=== PATIENT | female | born 1940 | race Caucasian/White ===

== ENCOUNTER 2017-07-02 15:26 | Inpatient (IN) | payer MEDICARE, BC ==
[2017-07-02 17:07] LABS: Hematocrit 40 % (35-47); Hemoglobin 13.5 g/dl (12.0-16.0); Mean Corpuscular HGB Conc 34 g/dl (31-36); Mean Corpuscular Hemoglobin 33 pg (27-31); Mean Corpuscular Volume 96 fL (80-97); Mean Platelet Volume 8 um3 (7.4-10.4); Red Blood Count 4.13 10^6/ul (4.0-5.4); Red Cell Distribution Width 13 % (10.5-15); White Blood Count 6.6 10^3/ul (3.5-10.8)
[2017-07-02] MEDS ORDERED: Digoxin IV* 0.5 MG/2 ML AMP (0.25 MG/ML) IV SLOW PU ONE ×2 (17:08→21:26)
[2017-07-02 17:24] LABS: Albumin 3.9 g/dL (3.2-5.2); BUN/Creatinine Ratio 17.1 (8-20); Calcium 9.1 mg/dL (8.6-10.3); EGFR African American 87.2 (>60); EGFR Non-African American 67.8 (>60); Globulin 2.6 g/dL (2-4); Potassium 3.7 mmol/L (3.5-5.0); Total Bilirubin 0.4 mg/dL (0.2-1.0); Total Protein 6.5 g/dL (6.4-8.9)
[2017-07-02 17:25] LABS: Troponin I 0.01 ng/mL (<0.04)
[2017-07-02] MEDS ORDERED: Meclizine TAB* 12.5 MG PO PRN (17:41)
[2017-07-02] MEDS ORDERED: Potassium Chlor TAB* 20 MEQ TAB.ER PO ONE (17:44)
[2017-07-02 17:58] LABS: TSH (Thyroid Stimulating Horm) 3.73 mcIU/mL (0.34-5.60)
[2017-07-02] MEDS ORDERED: Diltiazem DRIP* 100 MG/100 ML ADDV.BAG IVPB SCH (18:00)
--- NOTE | 2017-07-02 19:38 | HP ---
CC: Lindsay Contreras NP; Dr. Valenzuela; Dr. Wallis HISTORY AND PHYSICAL: DATE OF ADMISSION: 07/02/17 TIME OF EVALUATION: 5:15 p.m. PRIMARY CARE PROVIDER: Lindsay Contreras NP LAWN CARE SPECIALIST: Dr. Valenzuela. CONSULTING LAWN CARE SPECIALIST: Dr. Wallis. CHIEF COMPLAINT: "My heart is beating fast." HISTORY OF PRESENT ILLNESS: Mrs. Brown is a 77-year-old lady with a past medical history of GERD, arthritis, migraines who was sent to the emergency room due to a fast heart rate. The patient states she was in her usual state of health until 6 weeks ago when she had an episode of bronchitis. She was treated with azithromycin and initially she had improvement of her symptoms, but she noticed progressive dyspnea with exertion, palpitations and she felt that she was still fighting the infection off. She noticed progressive limitation of her exercise capacity and a week ago went to her primary care provider who did an EKG and found that the patient was in atrial fibrillation. She was started on aspirin and metoprolol but states that she felt even more tired and fatigued. She had an appointment with Dr. Valenzuela today and she was found to be in atrial fibrillation with rapid ventricular rate and referred to the emergency room for further evaluation. She denies chest pain, chest pressure. She does feel her heart being fast, but she is not aware if it is irregular or not. So, it is unclear when the atrial fibrillation started. PAST MEDICAL HISTORY: 1. Migraines. 2. Arthritis. 3. GERD. MEDICATION LIST: 1. Butalbital/aspirin/caffeine 1 capsule p.o. q.i.d. as needed for migraines. 2. Calcium plus vitamin D 1 tablet p.o. b.i.d. 3. Celecoxib 200 mg p.o. daily. 4. Meclizine 25 mg p.o. t.i.d. p.r.n. dizziness. 6. Metoprolol succinate 25 mg p.o. daily. 7. Multivitamin 1 tablet p.o. daily. 8. Omeprazole 20 mg p.o. b.i.d. ALLERGIES: With CEFACLOR, the patient had hives; with CODEINE, ERYTHROMYCIN, GABAPENTIN, MEPERIDINE, OXYCODONE, TRAMADOL, the patient had vomiting; and with PNEUMOCOCCAL VACCINE and GENERAL ANESTHESIA, she described a reaction similar to rheumatoid arthritis that required treatment with methotrexate. FAMILY HISTORY: Father of pulmonary embolism at age 67. Mother in her 90s of congestive heart failure. Brother of congestive heart failure and another one from bladder cancer. SOCIAL HISTORY: The patient denies tobacco use. She states she drinks 1 glass of wine at night and drinks 2 cups of coffee a day. Surrogate decision maker is her son, Chapito Brown, phone number is [phone]. REVIEW OF SYSTEMS: A 14-point review of systems was performed, and all the pertinent negatives and positive findings are in the HPI. PHYSICAL EXAMINATION GENERAL: The patient is a pleasant, elderly lady, lying in ER stretcher, in no acute distress. VITAL SIGNS: Temperature 97.7, heart rate is 118, respiratory rate 20, oxygen saturation 97% on room air, blood pressure 138/96. HEENT: Pupils are equal. Moist mucous membranes. NECK: No JVD. CHEST: Breath sounds are present bilaterally with no added sounds. CVS: Normal S1, S2. Irregularly irregular. ABDOMEN: Soft. Bowel sounds are present. EXTREMITIES: There is mild bilateral lower extremity edema. NEURO: She is alert, oriented x3. She is able to move all 4 extremities. LABORATORY AND IMAGING DATA: The patient had a CBC that showed WBC of 6.6, hemoglobin of 13.5, hematocrit of 40, and platelets of 248 with 68% neutrophils. Chemistry showed a sodium of 138, potassium 3.7, chloride of 107, bicarb of 26, BUN of 14, creatinine of 0.82, glucose of 95. Magnesium of 2. LFTs are normal. Troponin 0.01. TSH 3.7. EKG showed atrial fibrillation with rapid ventricular rate at 128 beats per minute. This is new when compared to her prior EKG in our system done in 2009, but the patient states she had a physical done in March and an EKG was done at that time and she was told the EKG was normal. ASSESSMENT AND PLAN: Mrs. Brown is a 77-year-old lady with a past medical history of migraines, arthritis, GERD, who was referred to the emergency room with complaints of fatigue, exertional dyspnea, found to have atrial fibrillation with rapid ventricular rate. 1. Atrial fibrillation, rapid ventricular rate. It is unclear when the patient went into atrial fibrillation. She will be admitted as observation to telemetry floor. We are going to start Cardizem drip for rate control. The patient has a CHADS2-VASc score of 3 (female, age) and she will be started on anticoagulation. We discussed multiple options including heparin drip with warfarin or a new oral anticoagulant agent. After reviewing risks and benefits , she elected to take Eliquis and this will be started tonight in preparation for SAMANTHA cardioversion in the morning. A cardiology consultation was already requested with Dr. Wallis. The patient states that in the past when she had general anesthesia, she developed rheumatoid arthritis like reaction, but she does well with conscious sedation. She received it for an endoscopy in December and had no reaction. 2. Gastroesophageal reflux disease: We will continue omeprazole. 3. DVT prophylaxis: The patient had a score of 3 on the DVT Prophylaxis Risk Assessment Guide and she was started on Eliquis. 4. Code status is full. TIME SPENT: Approximately 55 minutes were spent with the patient and family Interview, medical records review, physical examination to complete this admission; more than half of this time was spent [id number] with the patient and coordination of care. [id number]/[facility] #: [id number] ARYA
[2017-07-02] MEDS: Apixaban* 5 MG TAB PO SCH (21:06)
[2017-07-02] MEDS: Omeprazole CAP* 20 MG PO SCH (21:06)
[2017-07-02] MEDS: Metoprolol Succinate XL TAB* 25 MG PO SCH (22:29)
[2017-07-02] MEDS: Diltiazem TAB* 30 MG PO SCH (22:54)
[2017-07-03] MEDS: Diltiazem TAB* 30 MG PO SCH ×2 (05:49→13:00)
[2017-07-03 06:32] LABS: Hematocrit 40 % (35-47); Hemoglobin 13.8 g/dl (12.0-16.0); Mean Corpuscular HGB Conc 35 g/dl (31-36); Mean Corpuscular Hemoglobin 33 pg (27-31); Mean Corpuscular Volume 96 fL (80-97); Mean Platelet Volume 8 um3 (7.4-10.4); Red Blood Count 4.17 10^6/ul (4.0-5.4); Red Cell Distribution Width 13 % (10.5-15); White Blood Count 6.3 10^3/ul (3.5-10.8)
[2017-07-03 06:48] LABS: BUN/Creatinine Ratio 13.4 (8-20); Calcium 9.2 mg/dL (8.6-10.3); EGFR African American 87.2 (>60); EGFR Non-African American 67.8 (>60); Potassium 4.3 mmol/L (3.5-5.0)
--- NOTE | 2017-07-03 08:33 | RAD ---
Indication: Atrial fibrillation. Comparison: June 26, 2017 CT. Technique: Upright AP 0720 hours Report: Mild positional rightward rotation. Cardiomegaly. Mild prominence of interstitial markings. Mildly prominent and ill-defined central pulmonary vasculature. Small LEFT and probable trace RIGHT dependent pleural effusions similar in magnitude to the June 26, 2017 CT. Negative for pneumothorax. IMPRESSION: Mild pulmonary vascular congestion and interstitial edema with associated small LEFT and minimal RIGHT dependent pleural effusions. No significant interval change.
[2017-07-03] MEDS: Metoprolol Succinate XL TAB* 25 MG PO SCH (08:47)
[2017-07-03] MEDS: Omeprazole CAP* 20 MG PO SCH ×2 (08:47→21:46)
[2017-07-03] MEDS: Apixaban* 5 MG TAB PO SCH ×2 (08:47→21:46)
[2017-07-03] MEDS: Multivitamins/Minerals TAB PO SCH (08:47)
[2017-07-03] MEDS ORDERED: Naloxone* 0.4 MG/ML 1 ML VIAL ONE (10:29)
[2017-07-03] MEDS ORDERED: Flumazenil* 0.1 MG/ML 5 ML MDV ONE (10:29)
[2017-07-03] MEDS ORDERED: fentaNYL* 50 MCG/ML 2 ML VIAL (100 MCG VIAL) ONE (10:29)
[2017-07-03] MEDS ORDERED: Lidocaine 2% VISCOUS* 15 ML UDC ONE (10:30)
[2017-07-03] MEDS ORDERED: Midazolam* 1 MG/ML 10 ML VIAL (10 MG) ONE (10:30)
[2017-07-03] MEDS ORDERED: Metoprolol Tartrate IV* 1 MG/ML 5 ML VIAL ONE (11:07)
--- NOTE | 2017-07-03 14:17 | TEE ---
Patient: THALIA ESTEVEZ [facility] Rec#: [id number] : 1940 Date: 07/03/2017 Age: 77y Height: 167.6 cm / 66.0 in Weight: 73.5 kg / 162.0 lbs Sex: F BSA: 1.8 Room#: 451 Admit Date#: 07/02/2017 Type: Inpatient Referring: Joe Wallis MD Performing: Joe Wallis MD Reading: Joe Wallis MD Pupil Personnel Worker: Sissy Chau RN RD Nurse: Milly Esparza RN Transesophageal Echocardiogram Indication: Atrial fibrillation BP: 140/84 HR: 104 Rhythm: A-Fib Findings History: Migraines, arthritis, GERD, recent A. fib and NAJERA Technical Comments: The study quality is good. Completed at 1205. Left Ventricle: The left ventricular chamber size is normal. There is global hypokinesis of the left ventricle with minor regional variation. There is mild to moderately decreased left ventricular systolic function. The estimated ejection fraction is 40-45%. Left Atrium: The left atrium is moderately dilated. No thrombus is visualized within the left atrium. There is no thrombus visualized in the left atrial appendage. Right Ventricle: The right ventricle is not well visualized. Right Atrium: The right atrium is not well visualized. The bubble study is negative. Aortic Valve: The aortic valve is trileaflet. The aortic valve leaflets are mildly thickened. There is a trace of aortic regurgitation. There is no evidence of aortic stenosis. Mitral Valve: The mitral valve leaflets are mildly thickened. There is mild to moderate mitral regurgitation. There is no evidence of mitral stenosis. Tricuspid Valve: The tricuspid valve leaflets are normal. There is mild tricuspid regurgitation. There is no tricuspid stenosis. Pulmonic Valve: The pulmonic valve appears normal. There is no evidence of pulmonic regurgitation. There is no pulmonic stenosis. Pericardium: There is no significant pericardial effusion. Aorta: There is no dilatation of the ascending aorta. There is no dilation of the aortic root. There is mild to moderate atherosclerotic plaque seen in the proximal descending aorta measuring up to 0.6 cm. Pulmonary Artery: The main pulmonary artery appears normal. Venous: The bicaval view was obtained and appears normal. The pulmonary veins appear normal. 3 of 4 pulmonary veins are visualized. SAMANTHA Procedures: All standard views were attempted within the limitations of patient tolerance and safety. The 4-chamber view was attempted but was unable to be obtained. History and physical as well as labs were reviewed. The patient was in a fasting state. Risks and benefits of the procedure, including alternatives, were discussed and written informed consent was obtained. The patient and/or their health care internet sales representative expressed understanding of the procedure, risks and benefits. Baseline and continuous monitoring of blood pressure, heart rate, pulse oximetry and heart rhythm was performed throughout the procedure. The appropriate time-out procedure was performed as per [facility] protocol. The patient was placed in the left lateral decubitus position. The patient's posterior pharynx was anesthetized with 20ml of 2% viscous lidocaine. The patient received IV Midazolam with a total dose of 6 mg. The patient received IV Fentanyl with a total dose of 25 mcg. An oral bite block was inserted for protection of oral dentition. The multiplane transesophageal echocardiogram probe was inserted through the posterior oropharynx and advanced into the esophagus without difficulty. Multiple 2D images were obtained of the heart and its related structures. Color flow Doppler was used for evaluation. Spectral Doppler was also used. The atrial septum was interrogated with color flow Doppler. At the conclusion of the procedure the probe was removed with continuous suction without complications. The patient tolerated the procedure with no apparent complications. Contrast: Normal saline was used as contrast for the bubble study. There was a small jet of possible flow across a PFO but this was not confirmed on the contrast study which was negative despite cough and valsalva. Image 56. Conclusions There is global hypokinesis of the left ventricle with minor regional variation. There is mild to moderately decreased left ventricular systolic function. The estimated ejection fraction is 40-45%. The left atrium is moderately dilated. No thrombus is visualized within the left atrium. The aortic valve leaflets are mildly thickened. There is a trace of aortic regurgitation. There is mild tricuspid regurgitation. There is no dilation of the aortic root. There is mild to moderate atherosclerotic plaque seen in the proximal descending aorta measuring up to 0.6 cm. No prior study. Measurements Name Value Normal Range Aortic Annulus 2.3 cm (1.4 - 2.6) Ao root diameter (2D) 3.1 cm (2.1 - 3.5) Ascending Ao 2.9 cm (2.1 - 3.4)
--- NOTE | 2017-07-03 14:42 | PN ---
Subjective Date of Service: 07/03/17 Interval History: HOSPITALIST PROGRESS NOTE Patient seen and examined at bedside. Still sedated after SAMANTHA, offers no complaints. Family History: Unchanged from Admission Social History: Unchanged from Admission Past Medical History: Unchanged from Admission Objective Active Medications: Acetaminophen (Tylenol Tab*) 650 mg PO Q6H PRN PRN Reason: pain/fever Apixaban (Eliquis*) 5 mg PO BID [facility] Last Admin: 07/03/17 08:47 Dose: 5 mg Digoxin (Lanoxin Tab*) 0.125 mg PO 1700 [facility] Meclizine HCl (Antivert Tab*) 25 mg PO TID PRN PRN Reason: DIZZINESS Multivitamins/Minerals (Theragran/Minerals Tab*) 1 tab PO DAILY [facility] Last Admin: 07/03/17 08:47 Dose: 1 tab Omeprazole (Prilosec Cap*) 20 mg PO BID [facility] Last Admin: 07/03/17 08:47 Dose: 20 mg Sotalol HCl (Betapace Tab*) 80 mg PO BID [facility] Vital Signs - 8 hr 07/03/17 07/03/17 07/03/17 07:42 12:37 12:39 Temperature 98.1 F 98.5 F Pulse Rate 103 87 87 Respiratory 20 16 Rate Blood Pressure 151/76 160/94 160/94 (mmHg) O2 Sat by Pulse 91 92 Oximetry Oxygen Devices in Use Now: Nasal Cannula Appearance: Elderly lady lying in bed in NAD. Eyes: No Scleral Icterus Ears/Nose/Mouth/Throat: Mucous Membranes Moist Neck: Trachea Midline Respiratory: Symmetrical Chest Expansion and Respiratory Effort, Clear to Auscultation Cardiovascular: - - Normal S1 and S2, irregularly irregular Abdominal: NL Sounds; No Tenderness; No Distention Result Diagrams: 07/03/17 06:17 07/03/17 06:17 Assess/Plan/Problems-Billing Assessment: Mrs. Brown is a 77yo F with PMH of migraines, arthritis, GERD, who presented to ED with c/o fast HB, found to be in Afib RVR. - Patient Problems (1) Atrial fibrillation with rapid ventricular response Comment: - Unclear when it started, but she has felt poor since she had "bronchitis" 6 weeks ago. - Failed 2 attempted CVs today - plan for digoxin and Betapace and if no chemical conversion, would try CV again next week. - Continue Eliquis. (2) GERD (gastroesophageal reflux disease) Comment: - Continue Omeprazole. (3) DVT prophylaxis Comment: - Eliquis. (4) Full code status Status and Disposition: Change to inpatient.
[2017-07-03] MEDS: Sotalol TAB* 80 MG PO SCH ×2 (15:28→21:46)
[2017-07-03] MEDS: Digoxin TAB* 0.125 MG PO SCH (17:07)
[2017-07-03] MEDS: Atorvastatin* 20 MG TAB PO SCH (17:41)
--- NOTE | 2017-07-03 22:37 | CARD ---
PROCEDURE REPORT: DATE OF PROCEDURE: 07/03/17 REASON FOR PROCEDURE: AFib. INDICATIONS: This is a 77-year-old who has had several weeks of feeling tired and was found to be in atrial fibrillation with rapid ventricular response. She was admitted last night and started on Car dizem in addition to the beta-mary she was on. Also she got a couple doses of digoxin. She was s tarted on oral anticoagulation. A SAMANTHA guided cardioversion was requested. DESCRIPTION OF PROCEDURE: The patient was brought to the procedure room in the fasting state. [facility] was obtained. She was premedicated with 6 mg of Versed and 50 mcg of fentanyl. SAMANTHA was performed revealed no evidence of intracardiac thrombus and additional 2 mg of Versed was given in a synchronized biphasic shock of 120 joules was applied with conversion to sinus rhythm for only a coup le of beats. She was given 5 mg of Lopressor IV and an additional shock of 200 joules biphasic was administered wi thout conversion to sinus rhythm. IMPRESSION: Attempted cardioversion x2 without maintenance of sinus rhythm. PLAN: The patient will be started on antiarrhythmic therapy with sotalol. She will be monitored for arrhythmia. We will consider repeat attempt of cardioversion after 2 to 3 days. [id number]/[facility] #: [id number]
[2017-07-04 07:51] LABS: HDL Cholesterol 63.1 mg/dL
[2017-07-04 08:06] LABS: Digoxin 0.8 ng/ml (0.8-2.0)
[2017-07-04] MEDS: Omeprazole CAP* 20 MG PO SCH ×2 (08:23→20:36)
[2017-07-04] MEDS: Multivitamins/Minerals TAB PO SCH (08:23)
[2017-07-04] MEDS: Apixaban* 5 MG TAB PO SCH ×2 (08:23→20:36)
[2017-07-04] MEDS: Sotalol TAB* 80 MG PO SCH ×2 (08:23→20:37)
[2017-07-04] MEDS: Acetaminophen TAB* 325 MG PO PRN ×2 (08:29→20:36)
[2017-07-04] MEDS ORDERED: Furosemide IV* 10 MG/ML 2 ML VIAL (20 MG) IV ONE (08:54)
[2017-07-04] MEDS ORDERED: Potassium Chlor TAB* 10 MEQ TAB.ER PO ONE (08:55)
--- NOTE | 2017-07-04 09:06 | PN ---
Subjective Date of Service: 07/04/17 Interval History: feels good at rest mild lightheaded when stands dyspnea on just walking to bathroom AM EKG: Rate controlled afib, normal QTc tele: rate controlled afib, no ventricular arrhythmias Medications Active Medications: Acetaminophen (Tylenol Tab*) 650 mg PO Q6H PRN PRN Reason: pain/fever Last Admin: 07/04/17 08:29 Dose: 650 mg Apixaban (Eliquis*) 5 mg PO BID [facility] Last Admin: 07/04/17 08:23 Dose: 5 mg Atorvastatin Calcium (Lipitor*) 20 mg PO 1700 [facility] Last Admin: 07/03/17 17:41 Dose: 20 mg Digoxin (Lanoxin Tab*) 0.125 mg PO 1700 [facility] Last Admin: 07/03/17 17:07 Dose: 0.125 mg Furosemide (Lasix Iv*) 20 mg IV ONCE ONE Stop: 07/04/17 08:55 Meclizine HCl (Antivert Tab*) 25 mg PO TID PRN PRN Reason: DIZZINESS Multivitamins/Minerals (Theragran/Minerals Tab*) 1 tab PO DAILY [facility] Last Admin: 07/04/17 08:23 Dose: 1 tab Omeprazole (Prilosec Cap*) 20 mg PO BID [facility] Last Admin: 07/04/17 08:23 Dose: 20 mg Potassium Chloride (Klor Con Er Tab*) 40 meq PO ONCE ONE Stop: 07/04/17 08:56 Sotalol HCl (Betapace Tab*) 80 mg PO BID [facility] Last Admin: 07/04/17 08:23 Dose: 80 mg Objective Vital Signs: Temp Pulse Resp BP Pulse Ox 97.6 F 86 20 156/77 93 07/04/17 08:19 07/04/17 08:19 07/04/17 08:19 07/04/17 08:19 07/04/17 08:19 Oxygen Devices in Use Now: None Appearance: nad, pleasant Neck: Trachea Midline, - - uncertain jvp Respiratory: Symmetrical Chest Expansion and Respiratory Effort - bibasilar crackles Cardiovascular: No Edema, - - irregularly irregular, no significant murmur Abdominal: NL Sounds; No Tenderness; No Distention Extremities: No Edema, No Clubbing, Cyanosis Skin: No Rash or Ulcers Neurological: Alert and Oriented x 3 Laboratory Results: 07/03/17 06:17 07/03/17 06:17 Total Bilirubin 0.40 mg/dL (0.2-1.0) 07/02/17 16:58 AST 21 U/L (13-39) 07/02/17 16:58 ALT 19 U/L (7-52) 07/02/17 16:58 Alkaline Phosphatase 66 U/L (34-104) 07/02/17 16:58 Total Protein 6.5 g/dL (6.4-8.9) 07/02/17 16:58 Albumin 3.9 g/dL (3.2-5.2) 07/02/17 16:58 Globulin 2.6 g/dL (2-4) 07/02/17 16:58 Albumin/Globulin Ratio 1.5 (1-3) 07/02/17 16:58 Triglycerides 158 mg/dL 07/04/17 07:11 Cholesterol 212 mg/dL 07/04/17 07:11 LDL Cholesterol 117 mg/dL 07/04/17 07:11 HDL Cholesterol 63.1 mg/dL 07/04/17 07:11 TSH 3.73 mcIU/mL (0.34-5.60) 07/02/17 16:58 07/02/17 16:58 Troponin I 0.01 07/02/2017: Mg 2.0 Assessment/Plan Cara Brown is a 77 year old woman admitted with mild subacute CHF exacerbation in the setting of rapid atrial fibrillation LVEF mildly reduced with a dilated LA. Had SAMANTHA/CV with ERAF 07/03/2017 now on sotalol load with plans for repeat CV on Thursday. - Continue sotalol 80 mg PO BID - Continue daily EKG and telemetry monitoring - Continue digoxin 0.125 mg PO daily - Continue eliquis 5 mg PO BID - Give 20 mg IV lasix with 40 PO keq x 1 now (ordered) - Check BMP and Mg Thursday AM - Will follow Thank you for allowing me to participate in the cardiovascular care of this patient. Please do not hesitate to contact me with questions or concerns.
[2017-07-04] MEDS: Atorvastatin* 20 MG TAB PO SCH (16:55)
[2017-07-04] MEDS: Digoxin TAB* 0.125 MG PO SCH (16:56)
--- NOTE | 2017-07-04 18:26 | PN ---
Subjective Date of Service: 07/04/17 Interval History: . Interviewed and examined patient at bedside; Discussed case with Dr. Sanchez and Dr. Rivers ; Reviewed previous notes and radiology results; - Patient in good spirits, tohugh she las diminished exercise tolerance in AF. - Rate controlled and AC'd. - Reviewed plan --> reattempting CV thursday if no chemical CV before then . Family History: Unchanged from Admission Social History: Unchanged from Admission Past Medical History: Unchanged from Admission Objective Active Medications: Acetaminophen (Tylenol Tab*) 650 mg PO Q6H PRN PRN Reason: pain/fever Last Admin: 07/04/17 08:29 Dose: 650 mg Apixaban (Eliquis*) 5 mg PO BID [facility] Last Admin: 07/04/17 08:23 Dose: 5 mg Atorvastatin Calcium (Lipitor*) 20 mg PO 1700 [facility] Last Admin: 07/04/17 16:55 Dose: 20 mg Digoxin (Lanoxin Tab*) 0.125 mg PO 1700 [facility] Last Admin: 07/04/17 16:56 Dose: 0.125 mg Meclizine HCl (Antivert Tab*) 25 mg PO TID PRN PRN Reason: DIZZINESS Multivitamins/Minerals (Theragran/Minerals Tab*) 1 tab PO DAILY [facility] Last Admin: 07/04/17 08:23 Dose: 1 tab Omeprazole (Prilosec Cap*) 20 mg PO BID [facility] Last Admin: 07/04/17 08:23 Dose: 20 mg Sotalol HCl (Betapace Tab*) 80 mg PO BID [facility] Last Admin: 07/04/17 08:23 Dose: 80 mg Vital Signs - 8 hr 07/04/17 07/04/17 07/04/17 11:55 16:23 16:56 Temperature 98.2 F 97.7 F Pulse Rate 74 86 87 Respiratory 12 16 Rate Blood Pressure 126/74 125/70 (mmHg) O2 Sat by Pulse 92 94 Oximetry Oxygen Devices in Use Now: None Result Diagrams: 07/03/17 06:17 07/03/17 06:17 Assess/Plan/Problems-Billing . Assessment: Mrs. Brown is a 77yo F with PMH of migraines, arthritis, GERD, who presented to ED with c/o fast HR, found to be in Atrial Fibrillation with RVR. ECHO: LVEF mildly reduced w/ dilated LA. Electrically refractive AF 07/03/2017 ; getting Sotalol load now with plans for repeat Cardioversion 07/06. Current Plan: - Sotalol 80 mg PO BID - Daily EKG - Continuous telemetry monitoring - Digoxin 0.125 mg PO Daily - Eliquis 5 mg PO BID for AC - Patient Problems (1) Atrial fibrillation with rapid ventricular response Current Visit: Yes Status: Acute Priority: High Code(s): I48.91 - UNSPECIFIED ATRIAL FIBRILLATION Comment: - Unclear when it started, but she has felt poor since she had "bronchitis" 6 weeks ago. - Failed 2 attempted CVs - plan for digoxin and Betapace and if no chemical conversion, reattempt CV again Thursday - Continue Eliquis for AC (2) DVT prophylaxis Current Visit: Yes Status: Acute Priority: High Code(s): PTG4462 - Comment: - Eliquis. (3) Full code status Current Visit: Yes Status: Acute Priority: High Code(s): Z78.9 - OTHER SPECIFIED HEALTH STATUS (4) GERD (gastroesophageal reflux disease) Current Visit: Yes Status: Acute Priority: High Code(s): K21.9 - GASTRO- ESOPHAGEAL REFLUX DISEASE WITHOUT ESOPHAGITIS Comment: - Continue Omeprazole. Status and Disposition: Inpatient.
[2017-07-05] MEDS: Multivitamins/Minerals TAB PO SCH (08:41)
[2017-07-05] MEDS: Apixaban* 5 MG TAB PO SCH ×2 (08:41→21:56)
[2017-07-05] MEDS: Omeprazole CAP* 20 MG PO SCH ×2 (08:41→21:56)
[2017-07-05] MEDS: Sotalol TAB* 80 MG PO SCH ×2 (08:41→21:58)
--- NOTE | 2017-07-05 09:17 | ECHO ---
Patient: THALIA ESTEVEZ [facility] Rec#: [id number] : 1940 Date: 07/05/2017 Age: 77y Height: 168 cm / 66.1 in Weight: 74 kg / 163.1 lbs Sex: F BSA: 1.8 Room#: 451 Admit Date#: 07/03/2017 Type: Inpatient Referring: Joe Wallis MD Reading: Noe Rivers DO Windshield Technician: Sissy Chau RN RDCS CC: Lindsay Contreras NP Transthoracic Echocardiogram Indication: Atrial fibrillation, cardiomyopathy BP: 125/62 HR: 114 Rhythm: A-Fib Findings History: Migraines, arthritis, GERD, recent A. fib and NAJERA Technical Comments: The study quality is fair. Completed at 0900. Left Ventricle: The left ventricular chamber size is normal. Mild concentric left ventricular hypertrophy is observed.with more prominent hypertrophy of the basal septum. There is global hypokinesis of the left ventricle with minor regional variation. There is mildly decreased left ventricular systolic function. The estimated ejection fraction is 40-45%. The assessment of diastolic function is non-diagnostic. Left Atrium: The left atrium is moderately dilated. Right Ventricle: The right ventricular cavity size is normal. The right ventricular global systolic function is mildly reduced. Right Atrium: The right atrial cavity size is normal. Aortic Valve: The aortic valve is trileaflet. The aortic valve leaflets are mildly thickened. There is aortic annular calcification.that is mild There is trace to mild aortic regurgitation. There is no evidence of aortic stenosis. Mitral Valve: Mild mitral annular calcification present. The mitral valve leaflets are mildly thickened. There is mild mitral regurgitation. There is no evidence of mitral stenosis. Tricuspid Valve: The tricuspid valve leaflets are normal. There is trace to mild tricuspid regurgitation. Unable to estimate the right ventricular systolic pressure. There is no tricuspid stenosis. Pulmonic Valve: The pulmonic valve structure is not well visualized. There is a trace pulmonic regurgitation. There is no pulmonic stenosis. Pericardium: There is no significant pericardial effusion. Aorta: There is no dilatation of the ascending aorta. There is no dilatation of the aortic arch. The aortic root is normal in size. Pulmonary Artery: The main pulmonary artery is not well visualized. Venous: The inferior vena cava appears normal in size. There is a greater than 50% respiratory change in the inferior vena cava dimension. Conclusions The left ventricular chamber size is normal. Mild concentric left ventricular hypertrophy is observed with more prominent hypertrophy of the basal septum. There is global hypokinesis of the left ventricle with minor regional variation. There is mildly decreased left ventricular systolic function. The estimated ejection fraction is 40-45%. The left atrium is moderately dilated. The right ventricular cavity size is normal. The right ventricular global systolic function is mildly reduced. No more than mild valvular regurgitation noted. Unable to estimate the right ventricular systolic pressure. Patient is in atrial fibrillation at time of study making estimation of LV and RV function difficult. Compared to prior transesophageal echo from 07/03/2017, no significant changes noted. Measurements Name Value Normal Range RVDdMajor (2D) 2.8 cm (2.2 - 4.4) RAd ISD 4CH 4.8 cm (3.4 - 4.9) RA (A4C)W 4.6 cm (2.9 - 4.6) IVSd (2D) 1.2 cm (0.6 - 1) LVPWd (2D) 1.2 cm (0.6 - 1) LVIDd (2D) 3.6 cm (3.6 - 5.4) Aortic Annulus 2.3 cm (1.4 - 2.6) Ao root diameter (2D) 3 cm (2.1 - 3.5) Ascending Ao 3 cm (2.1 - 3.4) LA dimension (AP) 2D 4.3 cm (2.3 - 3.8) LAd ISD 4CH 5.4 cm (2.9 - 5.3) LA ISD 4CH W 4 cm (2.5 - 4.5) Name Value Normal Range LA ESV SP 4CH (A/L) 80 ml - LA ESV SP 2CH (A/L) 61 ml - LA ESV BP (A/L) 71 ml - LA ESV BP (A/L) index 39 ml/m2 - LA ESV SP 4CH (MOD) 75 ml - LA ESV SP 2CH (MOD) 57 ml - Name Value Normal Range MV E-wave Vmax 0.82 m/sec - MV deceleration time 172 msec - LV septal e' Vmax 0.05 m/sec - LV lateral e' Vmax 0.06 m/sec - LV E:e' septal ratio 16.4 ratio - LV E:e' lateral ratio 13.7 ratio - Name Value Normal Range AV Vmax 1.2 m/sec - AV VTI 22 cm - AV peak gradient 5.8 mmHg - AV mean gradient 3.3 mmHg - LVOT Vmax 0.61 m/sec - LVOT VTI 9.5 cm - LVOT peak gradient 1.5 mmHg - LVOT mean gradient 0.8 mmHg - PIYUSH Vmax 0.49 m/sec - Name Value Normal Range IVC diameter 1.3 cm - Name Value Normal Range PV Vmax 0.52 m/sec -
[2017-07-05] MEDS: celeCOXIB CAP* 200 MG PO SCH (09:52)
[2017-07-05] MEDS ORDERED: Potassium Chlor TAB* 20 MEQ TAB.ER PO ONE (09:53)
[2017-07-05] MEDS ORDERED: Furosemide IV* 10 MG/ML 2 ML VIAL (20 MG) IV ONE (09:53)
--- NOTE | 2017-07-05 09:59 | PN ---
Subjective Date of Service: 07/05/17 Interval History: f/u Afib feels good at rest mild lightheaded when stands dyspnea on walking around hallway, echo this AM grossly unchanged from SAMANTHA AM EKG: Rate controlled afib, normal QTc tele: rate controlled afib, no ventricular arrhythmias Medications Active Medications: Acetaminophen (Tylenol Tab*) 650 mg PO Q6H PRN PRN Reason: pain/fever Last Admin: 07/04/17 20:36 Dose: 650 mg Apixaban (Eliquis*) 5 mg PO BID [facility] Last Admin: 07/05/17 08:41 Dose: 5 mg Atorvastatin Calcium (Lipitor*) 20 mg PO 1700 [facility] Last Admin: 07/04/17 16:55 Dose: 20 mg Celecoxib (Celebrex Cap*) 200 mg PO DAILY [facility] Last Admin: 07/05/17 09:52 Dose: 200 mg Digoxin (Lanoxin Tab*) 0.125 mg PO 1700 [facility] Last Admin: 07/04/17 16:56 Dose: 0.125 mg Furosemide (Lasix Iv*) 20 mg IV ONCE ONE Stop: 07/05/17 09:54 Meclizine HCl (Antivert Tab*) 25 mg PO TID PRN PRN Reason: DIZZINESS Multivitamins/Minerals (Theragran/Minerals Tab*) 1 tab PO DAILY [facility] Last Admin: 07/05/17 08:41 Dose: 1 tab Omeprazole (Prilosec Cap*) 20 mg PO BID [facility] Last Admin: 07/05/17 08:41 Dose: 20 mg Potassium Chloride (Klor Con Er Tab*) 40 meq PO ONCE ONE Stop: 07/05/17 09:54 Sotalol HCl (Betapace Tab*) 80 mg PO BID [facility] Last Admin: 07/05/17 08:41 Dose: 80 mg Objective Vital Signs: Temp Pulse Resp BP Pulse Ox 97.5 F 66 16 143/72 95 07/05/17 08:33 07/05/17 08:33 07/05/17 08:33 07/05/17 08:33 07/05/17 08:33 Oxygen Devices in Use Now: None Appearance: nad, pleasant Neck: Trachea Midline, - - uncertain jvp Respiratory: Symmetrical Chest Expansion and Respiratory Effort - bibasilar crackles, - - crackles right base Cardiovascular: No Edema, - - irregularly irregular, no significant murmur Abdominal: NL Sounds; No Tenderness; No Distention Extremities: No Edema, No Clubbing, Cyanosis Skin: No Rash or Ulcers Neurological: Alert and Oriented x 3 Laboratory Results: 07/03/17 06:17 07/03/17 06:17 Total Bilirubin 0.40 mg/dL (0.2-1.0) 07/02/17 16:58 AST 21 U/L (13-39) 07/02/17 16:58 ALT 19 U/L (7-52) 07/02/17 16:58 Alkaline Phosphatase 66 U/L (34-104) 07/02/17 16:58 Total Protein 6.5 g/dL (6.4-8.9) 07/02/17 16:58 Albumin 3.9 g/dL (3.2-5.2) 07/02/17 16:58 Globulin 2.6 g/dL (2-4) 07/02/17 16:58 Albumin/Globulin Ratio 1.5 (1-3) 07/02/17 16:58 Triglycerides 158 mg/dL 07/04/17 07:11 Cholesterol 212 mg/dL 07/04/17 07:11 LDL Cholesterol 117 mg/dL 07/04/17 07:11 HDL Cholesterol 63.1 mg/dL 07/04/17 07:11 TSH 3.73 mcIU/mL (0.34-5.60) 07/02/17 16:58 07/02/17 16:58 Troponin I 0.01 Diagnostic Imaging: ct 06/26/2017: moderate b/l pleural effusions Assessment/Plan Cara Brown is a 77 year old woman admitted with mild subacute CHF exacerbation in the setting of rapid atrial fibrillation LVEF mildly reduced with a dilated LA. Had SAMANTHA/CV with ERAF 07/03/2017 now on sotalol load with plans for repeat CV on Thursday. Received IV lasix 07/04 with good self reported urine output. - Continue sotalol 80 mg PO BID - Continue daily EKG and telemetry monitoring - Continue digoxin 0.125 mg PO daily - Continue eliquis 5 mg PO BID - Give another 20 mg IV lasix with 40 PO keq x 1 now (ordered) - Check BMP, Mg, BNP Thursday (ordered) - Make NPO after midnight for repeat cardioversion tomorrow (ordered) Thank you for allowing me to participate in the cardiovascular care of this patient. Please do not hesitate to contact me with questions or concerns.
--- NOTE | 2017-07-05 13:30 | PN ---
Subjective Date of Service: 07/05/17 Interval History: . Discussed case with Dr. Rivers again Patient c/o only back pain (OA) --> requested Celebrex and I ordered it. Got lasix by Dr. Sultana --> NPO p MN for CV. Denies CP/ + SOB with minimal movement. . Family History: Unchanged from Admission Social History: Unchanged from Admission Past Medical History: Unchanged from Admission Objective Active Medications: . Acetaminophen (Tylenol Tab*) 650 mg PO Q6H PRN PRN Reason: pain/fever Last Admin: 07/04/17 20:36 Dose: 650 mg Apixaban (Eliquis*) 5 mg PO BID [facility] Last Admin: 07/05/17 08:41 Dose: 5 mg Atorvastatin Calcium (Lipitor*) 20 mg PO 1700 [facility] Last Admin: 07/04/17 16:55 Dose: 20 mg Celecoxib (Celebrex Cap*) 200 mg PO DAILY [facility] Last Admin: 07/05/17 09:52 Dose: 200 mg Digoxin (Lanoxin Tab*) 0.125 mg PO 1700 [facility] Last Admin: 07/04/17 16:56 Dose: 0.125 mg Meclizine HCl (Antivert Tab*) 25 mg PO TID PRN PRN Reason: DIZZINESS Multivitamins/Minerals (Theragran/Minerals Tab*) 1 tab PO DAILY [facility] Last Admin: 07/05/17 08:41 Dose: 1 tab Omeprazole (Prilosec Cap*) 20 mg PO BID [facility] Last Admin: 07/05/17 08:41 Dose: 20 mg Sotalol HCl (Betapace Tab*) 80 mg PO BID [facility] Last Admin: 07/05/17 08:41 Dose: 80 mg . Vital Signs - 8 hr 07/05/17 07/05/17 08:00 08:33 Temperature 97.5 F Pulse Rate 66 Respiratory 16 16 Rate Blood Pressure 143/72 (mmHg) O2 Sat by Pulse 95 Oximetry Oxygen Devices in Use Now: None Appearance: NAD at rest Eyes: No Scleral Icterus Ears/Nose/Mouth/Throat: Clear Oropharnyx Neck: Trachea Midline Respiratory: Symmetrical Chest Expansion and Respiratory Effort Cardiovascular: - - rate controlled, irr irr. AF on tele monitor. Abdominal: NL Sounds; No Tenderness; No Distention Lymphatic: No Cervical Adenopathy Extremities: No Edema Skin: No Rash or Ulcers Neurological: Alert and Oriented x 3 Lines/Tubes/Other Access: Clean, Dry and Intact Peripheral IV Nutrition: Taking PO's Result Diagrams: 07/03/17 06:17 07/03/17 06:17 Assess/Plan/Problems-Billing . Assessment: Mrs. Brown is a 77yo F with PMH of migraines, arthritis, GERD, who presented to ED with c/o fast HR, found to be in Atrial Fibrillation with RVR. ECHO: LVEF mildly reduced w/ dilated LA. Electrically refractive AF 07/03/2017 ; getting Sotalol load now with plans for repeat Cardioversion 07/06. Current Plan: - Sotalol 80 mg PO BID - Daily EKG - Continuous telemetry monitoring - Digoxin 0.125 mg PO Daily - Eliquis 5 mg PO BID for AC - Patient Problems (1) Atrial fibrillation with rapid ventricular response Current Visit: Yes Status: Acute Priority: High Code(s): I48.91 - UNSPECIFIED ATRIAL FIBRILLATION Comment: - Unclear when it started, but she has felt poor since she had "bronchitis" 6 weeks ago. - Failed 2 attempted CVs - plan for digoxin and Betapace and if no chemical conversion, reattempt CV again Thursday - Continue Eliquis for AC (2) DVT prophylaxis Current Visit: Yes Status: Acute Priority: High Code(s): BZE1022 - Comment: - Eliquis. (3) Full code status Current Visit: Yes Status: Acute Priority: High Code(s): Z78.9 - OTHER SPECIFIED HEALTH STATUS (4) GERD (gastroesophageal reflux disease) Current Visit: Yes Status: Acute Priority: High Code(s): K21.9 - GASTRO- ESOPHAGEAL REFLUX DISEASE WITHOUT ESOPHAGITIS Comment: - Continue Omeprazole. Status and Disposition: Inpatient.
[2017-07-05] MEDS: Acetaminophen TAB* 325 MG PO PRN ×2 (14:07→21:57)
[2017-07-05] MEDS: Atorvastatin* 20 MG TAB PO SCH (16:09)
[2017-07-05] MEDS: Digoxin TAB* 0.125 MG PO SCH (16:09)
[2017-07-06] MEDS: Acetaminophen TAB* 325 MG PO PRN (04:23)
[2017-07-06 06:03] LABS: BUN/Creatinine Ratio 23.1 (8-20); Calcium 9.8 mg/dL (8.6-10.3); EGFR African American 92.3 (>60); EGFR Non-African American 71.8 (>60); Potassium 4.2 mmol/L (3.5-5.0)
[2017-07-06] MEDS: celeCOXIB CAP* 200 MG PO SCH (07:54)
[2017-07-06] MEDS: Multivitamins/Minerals TAB PO SCH (07:54)
[2017-07-06] MEDS: Apixaban* 5 MG TAB PO SCH ×2 (07:55→22:29)
[2017-07-06] MEDS: Sotalol TAB* 80 MG PO SCH ×2 (07:55→22:29)
[2017-07-06] MEDS: Omeprazole CAP* 20 MG PO SCH ×2 (07:55→22:29)
[2017-07-06] MEDS ORDERED: Naloxone* 0.4 MG/ML 1 ML VIAL ONE (11:47)
[2017-07-06] MEDS ORDERED: fentaNYL* 50 MCG/ML 2 ML VIAL (100 MCG VIAL) ONE (11:47)
[2017-07-06] MEDS ORDERED: Flumazenil* 0.1 MG/ML 5 ML MDV ONE (11:47)
[2017-07-06] MEDS ORDERED: Midazolam* 1 MG/ML 10 ML VIAL (10 MG) ONE (11:47)
--- NOTE | 2017-07-06 11:54 | PN ---
Subjective Date of Service: 07/06/17 Interval History: f/u Afib feels good at rest mild lightheaded when stands and dizziness dyspnea on walking around hallway, AM EKG: Rate controlled afib, normal QTc tele: rate controlled afib, no ventricular arrhythmias Medications Active Medications: Acetaminophen (Tylenol Tab*) 650 mg PO Q6H PRN PRN Reason: pain/fever Last Admin: 07/06/17 04:23 Dose: 650 mg Apixaban (Eliquis*) 5 mg PO BID [facility] Last Admin: 07/06/17 07:55 Dose: 5 mg Atorvastatin Calcium (Lipitor*) 20 mg PO 1700 [facility] Last Admin: 07/05/17 16:09 Dose: 20 mg Celecoxib (Celebrex Cap*) 200 mg PO DAILY [facility] Last Admin: 07/06/17 07:54 Dose: 200 mg Digoxin (Lanoxin Tab*) 0.125 mg PO 1700 [facility] Last Admin: 07/05/17 16:09 Dose: 0.125 mg Meclizine HCl (Antivert Tab*) 25 mg PO TID PRN PRN Reason: DIZZINESS Multivitamins/Minerals (Theragran/Minerals Tab*) 1 tab PO DAILY [facility] Last Admin: 07/06/17 07:54 Dose: 1 tab Omeprazole (Prilosec Cap*) 20 mg PO BID [facility] Last Admin: 07/06/17 07:55 Dose: 20 mg Sotalol HCl (Betapace Tab*) 80 mg PO BID [facility] Last Admin: 07/06/17 07:55 Dose: 80 mg Objective Vital Signs: Temp Pulse Resp BP Pulse Ox 98.4 F 72 24 126/58 97 07/06/17 07:53 07/06/17 07:53 07/06/17 08:00 07/06/17 07:53 07/06/17 07:53 Oxygen Devices in Use Now: None Appearance: nad, pleasant Neck: Trachea Midline, - - uncertain jvp Respiratory: Symmetrical Chest Expansion and Respiratory Effort - bibasilar crackles, - - crackles right base Cardiovascular: No Edema, - - irregularly irregular, no significant murmur Abdominal: NL Sounds; No Tenderness; No Distention Extremities: No Edema, No Clubbing, Cyanosis Skin: No Rash or Ulcers Neurological: Alert and Oriented x 3 Laboratory Results: 07/03/17 06:17 07/06/17 05:17 Total Bilirubin 0.40 mg/dL (0.2-1.0) 07/02/17 16:58 AST 21 U/L (13-39) 07/02/17 16:58 ALT 19 U/L (7-52) 07/02/17 16:58 Alkaline Phosphatase 66 U/L (34-104) 07/02/17 16:58 B-Natriuretic Peptide 309 pg/mL (-100) H 07/06/17 05:17 Total Protein 6.5 g/dL (6.4-8.9) 07/02/17 16:58 Albumin 3.9 g/dL (3.2-5.2) 07/02/17 16:58 Globulin 2.6 g/dL (2-4) 07/02/17 16:58 Albumin/Globulin Ratio 1.5 (1-3) 07/02/17 16:58 Triglycerides 158 mg/dL 07/04/17 07:11 Cholesterol 212 mg/dL 07/04/17 07:11 LDL Cholesterol 117 mg/dL 07/04/17 07:11 HDL Cholesterol 63.1 mg/dL 07/04/17 07:11 TSH 3.73 mcIU/mL (0.34-5.60) 07/02/17 16:58 07/02/17 16:58 Troponin I 0.01 Diagnostic Imaging: ct 06/26/2017: moderate b/l pleural effusions Assessment/Plan Cara Brown is a 77 year old woman admitted with mild subacute CHF exacerbation in the setting of rapid atrial fibrillation LVEF mildly reduced with a dilated LA. Had SAMANTHA/CV with ERAF 07/03/2017 now on sotalol load with plans for repeat CV today. Received IV lasix 07/04 and 07/05 with good self reported urine output. - Continue sotalol 80 mg PO BID - Continue daily EKG and telemetry monitoring - Continue digoxin 0.125 mg PO daily. Likely will d/c and start toprol post- cardioversion if pulse will tolerate - Continue eliquis 5 mg PO BID Thank you for allowing me to participate in the cardiovascular care of this patient. Please do not hesitate to contact me with questions or concerns.
--- NOTE | 2017-07-06 11:59 | PROCNOTE ---
Cardiology Procedure Note 07/06/2017 External electrical cardioversion Risks, benefits and alternatives discussed and patient wished to proceed. Has been on eliquis 5 mg PO BID since SAMANTHA 07/03/2017 did not show ALINA thrombus Patient sedated with versed 2 mg IV and fentanyl 25 mcg IV Patient successfully converted from atrial fibrillation to sinus bradycardia EKG post- sinus bradycardia, PAC's, IVCD, diffuse non-specific T wave abnormalities, QT interval appears normal. Plan: D/c digoxin (ordered) If BP/pulse permits would add low dose toprol to sotalol given mild cardiomyopathy, would also provide rate control if reverts to afib as an outpatient. Given significant symptom status would monitor until Thursday07/07/2017 inpatient
[2017-07-06] MEDS: Atorvastatin* 20 MG TAB PO SCH (17:35)
[2017-07-07] MEDS: Multivitamins/Minerals TAB PO SCH (08:43)
[2017-07-07] MEDS: Apixaban* 5 MG TAB PO SCH (08:43)
[2017-07-07] MEDS: Omeprazole CAP* 20 MG PO SCH (08:43)
[2017-07-07] MEDS: celeCOXIB CAP* 200 MG PO SCH (08:43)
[2017-07-07] MEDS: Sotalol TAB* 80 MG PO SCH (08:43)
[2017-07-07 11:39] VITALS: BP 122/52
--- NOTE | 2017-07-08 05:29 | DS ---
CC: Lindsay Contreras NP; Dr. Valenzuela DISCHARGE SUMMARY: DATE OF ADMISSION: 07/02/17 DATE OF DISCHARGE: 07/07/17 PRIMARY CARE PROVIDER: Lindsay Contreras NP OUTPATIENT CERTIFIED ALCOHOL AND DRUG COUNSELOR: Dr. Karin Valenzuela, [facility] Cardiology. PRINCIPAL DISCHARGE DIAGNOSIS: - Symptomatic atrial fibrillation with rapid ventricular response, status post cardioversion that initially failed and then was successful after a 3-day sotalol loading in the hospital with congregation of normal sinus rhythm and abatement of her symptoms. 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 Migraines. 2. Arthritis. 3. Gastroesophageal reflux disease. DISCHARGE MEDICATION REGIMEN: 1. Sotalol 80 mg by mouth twice daily.(new) 2. Lipitor 20 mg by mouth 1700 hours daily. (new) 3. Toprol 25 mg PO daily (if HR > 60-65) (continue) 4. Apixaban/Eliquis 5 mg by mouth twice daily (new) 5. Butalbital/aspirin/caffeine 1 capsule by mouth 4 times daily as needed for migraines. 6. Calcium plus vitamin D 1 tablet by mouth twice daily. 7. Celecoxib 200 mg by mouth daily. 8. Meclizine 25 mg by mouth 3 times daily p.r.n. dizziness. 9. Metoprolol succinate 25 mg by mouth daily. 10. Multivitamin 1 tablet by mouth twice daily. 11. Omeprazole 20 mg by mouth twice daily. HISTORY OF PRESENT ILLNESS AND HOSPITAL COURSE: Please see the H and P by Dr. Roro Walsh on 07/02/17 as well as the Cardiology consultation notes by Dr. Joe Wallis, and subsequently Noe Rivers. In brief, Mrs. Brown is a 77-year-old lady with a past medical history detailed above who came to the emergency room with palpitations. She stated she was in her usual state of health until 6 weeks ago when she had an episode of bronchitis, treated with azithromycin, and had improvement in her symptoms, but noted progressive dyspnea on exertion, palpitations and attributed this to her infection. The patient had progressive exercise capacity diminishment, and finally went to her PCP who did an EKG and found her in atrial fibrillation. The patient was started on metoprolol, but felt even more tired and fatigued upon doing than. She went to Dr. Valenzuela (cardiology) and was found to be in atrial fibrillation with RVR and went to the emergency room for further evaluation. The patient was unclear when her atrial fibrillation started precisely. The patient was anticoagulated with Eliquis and proceeded with a SAMANTHA cardioversion. This happened with Dr. Wallis and according to his notes, the patient failed to remain in normal sinus rhythm. She was then loaded with sotalol for 3 days and then cardioversion was reattempted on Thursday07/06/17, that time successfully. The patient immediately experienced relief following the procedure. She is being sent home on Eliquis, Betapace, Lipitor and the other medications detailed above. The patient is going to follow up with Dr. Valenzuela in the outpatient setting as well as with her PCP. The patient was given return to ED instructions if she should experience further symptomology including recurrent fast rate, she should come back to the emergency room to be reevaluated. Additionally, the patient was instructed to measure her own pulse. She was taught how to do this along with her daughter. I asked that she only take the Toprol 25 mg daily if her pulse was measured in the morning at greater than 65. She was occasionally at the 55 to 60 beats per minute range. There would be benefit for her cardiomyopathy if she can tolerate the beta-mary. Additional testing in the hospital included a transthoracic echocardiogram on , which revealed the left ventricular chamber size that was normal with mild concentric LVH with somewhat prominent hypertrophy of the basal septum, but a decreased LV systolic function with estimated ejection fraction between 40 % and 45% and the assessment of diastolic function nondiagnostic. At the time of this TTE, the patient was in atrial fibrillation with the left atrium moderately dilated. This was, again, on 07/03/17. TIME SPENT: Total time taken to discharge Mrs. Brown was 45 minutes, greater than half that time was spent at the bedside going over the discharge instructions. CONDITION AT DISCHARGE: Stable. [id number]/[facility] #: [id number] MTDD
== END 2017-07-07 13:45 | disposition home or self-care (01) | DRG 310 ==
LOC: ED 15:26 → MEDTELE 17:38 → OBSVTOIN 07-03 14:43
PROVIDERS: ADMIT Internal Medicine; ATTEND Internal Medicine
PROC: 5A2204Z Restoration of Cardiac Rhythm, Single (ICD-10-PCS; 2017-07-03)
PROC: B245ZZ4 Ultrasonography of Left Heart, Transesophageal (ICD-10-PCS; principal; 2017-07-03 08:30)
PROC: 5A2204Z Restoration of Cardiac Rhythm, Single (ICD-10-PCS; 2017-07-06)
DX: I48.0 Paroxysmal atrial fibrillation (principal); I42.8 Other cardiomyopathies; K21.9 Gastro-esophageal reflux disease without esophagitis; G43.909 Migraine, unspecified, not intractable, without status migrainosus; M19.90 Unspecified osteoarthritis, unspecified site; Z79.82 Long term (current) use of aspirin; Z79.899 Other long term (current) drug therapy; Z88.1 Allergy status to other antibiotic agents; Z88.5 Allergy status to narcotic agent; Z88.8 Allergy status to other drugs, medicaments and biological substances; Z88.4 Allergy status to anesthetic agent; Z88.7 Allergy status to serum and vaccine; Z80.52 Family history of malignant neoplasm of bladder; Z82.5 Family history of asthma and other chronic lower respiratory diseases
CPT/HCPCS: 36415; 71010; 80048; 80053; 80061; 80162; 83735; 83880; 84443; 84484; 85025; 92960; 93005; 93306; 93312; 93325; 99156; 99157; A9270-GY; G0378; J1160; J1940; J2250; J2310; J3010; J3490

== ENCOUNTER 2020-05-24 06:41 | Observation (INO) ==
[2020-05-24] MEDS ORDERED: Clindamycin 600 MG/D5W BAG 600 MG/50 ML BAG IV ONE (08:14)
[2020-05-24] MEDS ORDERED: Lidocaine 1% VIAL 10 MG/ML VIAL ONE ×2 (08:24→09:08)
[2020-05-24] MEDS ORDERED: fentaNYL 100 mcg/2 ml 50 MCG/ML VIAL ONE (08:29)
[2020-05-24] MEDS ORDERED: Midazolam 5 mg/5 ml VIAL 1 mg/ml 5 ml VIAL (5 mg) ONE ×2 (08:29→09:08)
[2020-05-24] MEDS ORDERED: Iohexol 300 (CONTRAST) 10 ML SDV ONE (08:29)
[2020-05-24] MEDS ORDERED: diPHENhydraMINE IV 50 MG/ML 1 ml VIAL (BENADRYL) ONE (08:58)
[2020-05-24] MEDS ORDERED: Butalb/Acetamin/Caff TAB 325-50-40MG PO PRN (10:35)
[2020-05-24] MEDS: Clindamycin 600 MG/D5W BAG 600 MG/50 ML BAG IV SCH (16:11)
[2020-05-25] MEDS: Clindamycin 600 MG/D5W BAG 600 MG/50 ML BAG IV SCH ×2 (01:41→08:08)
[2020-05-25 12:16] VITALS: BP 149/50
== END 2020-05-25 14:16 | disposition home or self-care (01) ==
LOC: MEDTELE 06:41 → CHICATH 06:41
PROVIDERS: ADMIT Specialist; ATTEND Specialist